=== PATIENT | female | born 1970 ===

== ENCOUNTER 2018-07-28 10:57 | Emergency (ER) | payer OTHER ==
[2018-07-28 11:00] VITALS: TEMP 98.5; O2SAT 99
[2018-07-28 11:01] VITALS: BMI 29.2
--- NOTE | 2018-07-28 11:42 | ED PDOC ---
Upper Extremity Pain/Injury Time Seen by Provider: 07/28/18 11:10 Chief Complaint (Nursing): Upper Extremity Problem/Injury Chief Complaint (Provider): Right shoulder pain History Per: Patient History/Exam Limitations: no limitations Additional Complaint(s): 47 y/o F with HTN and arthritis who presents with Right shoulder pain x 2 months. Patient states that she has been taking Ibuprofen and muscle relaxer intermittently with some improvement in pain but the pain recurs. She has difficulty elevating her right arm. She has not taken any medications today and the last time she took Ibuprofen was one week ago. She has occasional numbness in right hand. Denies fever, chills, trauma. Pt further states that she has no PMD and ran out of one of her BP medications a few days ago, which she brought from the [place]. Past Medical History Reviewed: Historical Data, Nursing Documentation, Vital Signs Vital Signs: Last Vital Signs Temp 98.5 F 07/28/18 11:00 Pulse 87 07/28/18 11:00 Resp 19 07/28/18 11:00 BP 178/110 H 07/28/18 11:00 Pulse Ox 99 07/28/18 11:00 Primary Care Provider: FAMILY PROVIDER,NO - Medical History PMH: HTN - Surgical History Surgical History: Back Surgery - Family History Family History: States: Unknown Family Hx - Home Medications Home Medications: Ambulatory Orders Medication Instructions Recorded Naproxen 500 mg PO BID PRN 7 Days tab 07/28/18 hydroCHLOROthiazide [Hydrodiuril] 25 mg PO DAILY 7 Days tab 07/28/18 - Allergies Allergies/Adverse Reactions: Allergies Allergy/AdvReac Type Severity Reaction Status Date / Time No Known Allergies Allergy Verified 07/28/18 11:09 Review of Systems Constitutional: Negative for: Fever, Chills Musculoskeletal: Positive for: Shoulder Pain Physical Exam - Reviewed Nursing Documentation Reviewed: Yes Vital Signs Reviewed: Yes - Physical Exam Appears: Positive for: Uncomfortable Skin: Positive for: Normal Color Neck: Positive for: Normal, Painless ROM Extremity: Positive for: Capillary Refill (< 2 sec). Negative for: Normal ROM (mild decreased flexion and abduction of Right shoulder, pain on palpation of anterior shoulder, no pain on palpation of humeral head. No ecchymosis,deformity, erythema noted. ), Deformity, Swelling Neurological/Psych: Positive for: Awake, Alert, Oriented - ECG O2 Sat by Pulse Oximetry: 99 Medical Decision Making Medical Decision Making: Right shoulder x-ray Toradol 30mg IM x 1 HCTZ 25mg PO x 1 Right shoulder x-ray: FINDINGS: There is some blurring on the image over the inferior scapula and glenoid. BONES: Normal. No fracture. JOINTS: . Glenohumeral and acromioclavicular mild arthrosis. SOFT TISSUES: Normal. OTHER FINDINGS: Right apophyseal joint hypertrophic arthrosis. IMPRESSION: No fracture or dislocation. 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 13:50: re-evaluated: pt states that pain has improved although still present. Pt advised that pain will be chronic and should take anti-inflammatory medication and Tylenol as needed for pain. Stable for d/c home. Disposition - Clinical Impression Clinical Impression: HTN (hypertension), Shoulder pain Counseled Patient/Family Regarding: Studies Performed, Diagnosis - Disposition Referrals: [facility] [place] [Outside] [facility] [place] [Outside] Disposition: Routine/Home Disposition Time: 13:55 Condition: IMPROVED Additional Instructions: Follow up with primary care doctor for further treatment and refills of medication for high blood pressure. Follow up with orthopedist for further treatment of chronic shoulder pain. Take HCTZ (hydrochlorothiazide) in addition to Enalapril. Take Naproxen and Tylenol as needed for shoulder pain. Return to ER for worsening symptoms. Prescriptions: hydroCHLOROthiazide [Hydrodiuril] 25 mg PO DAILY 7 Days tab Naproxen 500 mg PO BID PRN 7 Days tab PRN Reason: Pain, Moderate (4-7) Instructions: High Blood Pressure (DC), Shoulder Pain (DC) Forms: [employer] (Bengali) Print Language: MONGOLIAN
--- NOTE | 2018-07-28 12:42 | RAD ---
Date of service: 07/28/2018 PROCEDURE: Radiographs of the Right Shoulder HISTORY: Right shoulder pain COMPARISON: No prior. TECHNIQUE: 3 views obtained. FINDINGS: There is some blurring on the image over the inferior scapula and glenoid. BONES: Normal. No fracture. JOINTS: . Glenohumeral and acromioclavicular mild arthrosis. SOFT TISSUES: Normal. OTHER FINDINGS: Right apophyseal joint hypertrophic arthrosis. IMPRESSION: No fracture or dislocation. 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
[2018-07-28 13:48] VITALS: BP 157/83
[2018-07-28 14:22] VITALS: PULSE 75; RESP 17
== END 2018-07-28 14:04 | disposition home or self-care (01) ==
LOC: H.ER 10:57
DX: M25.511 Pain in right shoulder (principal); I10 Essential (primary) hypertension
CPT/HCPCS: 73030; 81025; 96372; 99284; J1885